=== PATIENT | male | born 1990 | race Caucasian/White ===

== ENCOUNTER 2023-04-18 16:01 | Emergency (ER) | payer MEDICAID ==
[~2023-04-18] VITALS: Ht 170.2 cm; Wt 83.9 kg
[2023-04-18 16:19] VITALS: BP_SYST 149; PULSE 116; RESP 18; TEMP 97.6; O2SAT 98
[2023-04-18] MEDS ORDERED: NAPR-1172 PO (16:23)
[2023-04-18] MEDS ORDERED: CIPR500T5 PO (16:23)
[2023-04-18 16:25] VITALS: BP_SYST 149; PULSE 116; RESP 18; TEMP 97.6; O2SAT 98
== END 2023-04-18 16:25 | disposition home or self-care (01) ==
LOC: SED 16:01
DX: N45.1 Epididymitis (principal); N50.812 Left testicular pain; Z79.899 Other long term (current) drug therapy
CPT/HCPCS: 99283